=== PATIENT | female | born 1945 | race Caucasian/White ===

== ENCOUNTER 2017-08-01 16:32 | Outpatient (CLI) | payer MEDICARE, BC | END 2017-08-01 16:33 | disposition home or self-care (01) | LOC: BICMAMMO 16:32 | PROVIDERS: ATTEND Family Medicine | DX: Z12.31 Encounter for screening mammogram for malignant neoplasm of breast (principal); R92.1 Mammographic calcification found on diagnostic imaging of breast; Z80.3 Family history of malignant neoplasm of breast; Z85.038 Personal history of other malignant neoplasm of large intestine | CPT/HCPCS: 77063; 77067 ==

== ENCOUNTER 2018-04-21 02:51 | Observation (INO) | payer MEDICARE, BC ==
[2018-04-21] MEDS ORDERED: ADENOSINE 60 MG/20 ML VIAL ONE (10:39)
[2018-04-21 12:48] LABS: CKMB 1.5 ng/mL (0-6.6); Troponin I Less than 0.010 ng/mL (< 0.028)
[2018-04-21 13:09] VITALS: BMI 37.0
[2018-04-21 13:09] LABS: Bilirubin Negative (Negative); Blood, Urine Negative (Negative); Clarity CLEAR (Clear); Glucose, Urine (Dipstick) Negative (Negative); Leukocyte Negative (Negative); Nitrite Negative (Negative); Protein, Urine (Dipstick) Negative (Neg-Trace); RBC/HPF 0-3 HPF (0-3); Specific Gravity, Urine 1.004 (1.002-1.036); Urobilinogen 0.2 mg/dL (0.2-1.0); pH, Urine 6.5 (5.0-9.0)
[2018-04-21 13:10] LABS: Bacteria/HPF None Seen HPF (None Seen); Hyaline Casts/LPF NONE SEEN LPF (0-3 Hyaline); Squamous Epithelial 0-3 HPF (0-3); WBC/HPF 0-3 HPF (0-3)
--- NOTE | 2018-04-21 13:38 | RAD ---
CHEST ONE VIEW: HISTORY: Tachycardia. FINDINGS: The cardiac silhouette is magnified by projection. The pulmonary vasculature are unremarkable. The lungs are well inflated. No lobar consolidation or evidence of pneumothorax. child monitor leads overly the chest. IMPRESSION: No active cardiopulmonary abnormalities are demonstrated. POS: [facility]
[2018-04-21 15:31] VITALS: BP 137/65; TEMP 97.9
--- NOTE | 2018-04-21 16:00 | PDOC.EVN ---
Event Note - Event Note Event Note: I have examined and discussed the patient with GAMAL Ruby regarding evaluation for chest pain. Reviewed all pertinent history, physical exam findings and pertinent radiology and stress test results. Recommend Coreg 3.125mg BID. Will follow up Dr. Julian for Holter monitor. Patient and verbalized understanding of treatment plan and discharge instructions.
--- NOTE | 2018-04-21 16:07 | NM ---
RADIONUCLIDE STRESS ONLY MYOCARDIAL PERFUSION SCAN WITH CT ATTENUATION CORRECTION AND SPECT IMAGING: LEFT VENTRICULAR WALL MOTION EVALUATION AND EJECTION FRACTION: HISTORY: Chest pain. FINDINGS: Adenosine protocol. There is homogeneous uptake of radiotracer throughout the left ventricular myocardium. No evidence o f ischemia. QGS analysis of gated SPECT images shows no focal wall motion abnormalities. Ejection f raction is calculated at greater than 80%. IMPRESSION: Normal myocardial perfusion stress only examination. Normal left ventricular ejection fraction. POS: [facility]
[2018-04-21 16:47] LABS: Carbon Dioxide 22 mmol/L (23-31); Chloride 105 mmol/L (98-107); Potassium 3.9 mmol/L (3.5-5.1); Sodium 141 mmol/L (136-145)
[2018-04-21 16:50] LABS: Anion Gap 14 mmol/L (10-20); BUN (Urea Nitrogen) 16 mg/dL (9.8-20.1)
[2018-04-21 16:51] LABS: ALT (SGPT) 21 U/L (8-55); AST (SGOT) 27 U/L (5-34); Albumin 4.6 g/dL (3.4-4.8); Alkaline Phosphatase 110 U/L (40-150); Bilirubin, Total 0.6 mg/dL (0.2-1.2); Calc. Creatinine Clearance 89 mL/min (70-130); Calcium 9.7 mg/dL (7.8-10.44); Estimated GFR-MDRD 59; Globulin 2.8 g/dL (2.4-3.5); Glucose 107 mg/dL (83-110); Protein, Total 7.4 g/dL (5.8-8.1)
[2018-04-21 16:53] LABS: Thyroid Stimulating Hormone 5.8304 uIU/mL (0.35-4.94)
[2018-04-21 16:54] LABS: T4 9.4 ug/dL (4.87-11.72)
[2018-04-21 16:55] LABS: Free Thyroxine Index 2.35 (1.4-3.1)
[2018-04-21 16:56] LABS: CKMB 1.7 ng/mL (0-6.6); Troponin I Less than 0.010 ng/mL (< 0.028)
[2018-04-21 17:27] LABS: %Lymphocytes 26.7 % (21.0-51.0); %Neutrophils 60.7 % (42.0-75.0); Hemoglobin 13.9 g/dL (12.0-16.0); Mean Corpuscular HGB CONC 33.2 g/dL (32.0-36.0); Mean Corpuscular Hemoglobin 31.2 pg (27.0-31.0); Mean Corpuscular Volume 94.1 fL (78.0-98.0); Mean Platelet Volume 8.5 fL (7.4-10.4); Platelet Count 339 thou/uL (130-400); RBC Distribution Width 12.1 % (11.5-14.5); Red Blood Cell (RBC) Count 4.44 mill/uL (4.20-5.40)
[2018-04-21 17:28] LABS: #Basophils 0.1 thou/uL (0.0-0.2); #Eosinphils 0.2 thou/uL (0.0-0.7); #Lymphocytes 2.7 thou/uL (1.20-3.40); #Neutrophils 6.1 thou/uL (1.40-6.50); %Basophils 0.7 % (0.0-1.0); %Eosinophils 2.1 % (0.0-10.0); %Monocytes 9.8 % (0.0-10.0)
[2018-04-21] MEDS ORDERED: Atorvastatin Calcium 20 MG TAB PO SCH (21:00)
--- NOTE | 2018-04-21 22:39 | HP ---
SHORT STAY SUMMARY PRIMARY CARE PHYSICIAN: Nena Abad M.D. CHIEF COMPLAINT: Palpitations and a fast heart rate. HISTORY OF PRESENT ILLNESS: Ms. Erazo reports that she could not sleep early this morning, took 25 mg of Benadryl and sometime later started having heart palpitations and noted that she had a rapid heart rate and she reports feeling foggy and some tingling in extremities. This prompted her visit to the ER. She reports similar episodes several weeks ago which resolved spontaneously. She denies other complaints. EKG in the ER was significant for atrial flutter and RVR. Subsequent EKG was within normal sinus rhythm. She will be admitted for further management. PAST MEDICAL HISTORY: Includes hypothyroidism, hyperlipidemia, GERD, and migraines. CURRENT MEDICATIONS: She is on pantoprazole at 40 mg p.o. at bedtime, Synthroid 75 mcg p.o. q.a.m., Lipitor 20 mg p.o. at bedtime, Coenzyme Q 100 mg 2 tabs p.o. daily, multivitamin 1 tab p.o. daily, Krill oil 325 mg 3 tablets p.o. daily, aspirin 81 mg p.o. daily at nighttime, CIRILO-e oil 400 mg p.o. daily and then she also has Imitrex 100 mg p.o. p.r.n. q.12 hours for migraines. ALLERGIES: She is allergic to ERYTHROMYCIN. She reports GI issues with these. PAST SURGICAL HISTORY: Includes a right knee surgery, ovarian cyst was removed with a bilateral oophorectomy and skin cancer was removed from the right wrist and neck. FAMILY HISTORY: Pertinent for a father with TN x3. He of an TN at the age of 80. Mother from breast cancer at 75. Brother also has cardiac artery disease and has had one TN at the age of 55. SOCIAL HISTORY: She is , FULL CODE, nonsmoker, occasionally drinks alcohol. REVIEW OF SYSTEMS: GENERAL: She has some residual muscle spasms. Otherwise, she feels fine. She does reports that she feels her heart is no longer racing as she no longer has palpitations. EYES: No double vision, blurred vision, flashing lights. ENT: No ear pain or drainage. No nasal bleeding, no trouble swallowing. CARDIAC: See present illness. No orthopnea, no dyspnea currently. RESPIRATORY: No cough, wheezing or asthma. GASTROINTESTINAL: No nausea, vomiting, diarrhea or constipation. GENITOURINARY: No dysuria or hematuria. MUSCULOSKELETAL: She reports this intermittent muscle spasm all over her body. NEUROLOGIC: No strokes, seizures or focal weakness. She does report some intermittent tingling to her extremities, more so in her hands and her feet. SKIN: No bruises, bleeding or rash. HEME/LYMPH: No tender or swollen lymph nodes in axilla, inguinal, or cervical area. PHYSICAL EXAMINATION: GENERAL: She is an alert, pleasant, cooperative, in no acute distress. She has family members at the bedside. VITAL SIGNS: This morning, 97.8 temperature, pulse was 70, respirations were 20 , she was 96% on room air, and blood pressure was 124/58. HEENT: Pupils are equal, round, and reactive to light. Extraocular movements intact. Her sclerae was white. Tympanic membranes clear. Nose is clear. Dental hygiene is good. NECK: Supple, no JVD, no thyromegaly. CHEST: Clear to auscultation and percussion. HEART: Regular rate and rhythm. No murmurs or gallops noted. ABDOMEN: Soft. Bowel sounds are normal. EXTREMITIES: Reveal no cyanosis, clubbing or edema. PULSES: Carotid, radial, femoral, and pedal pulses are intact. SKIN: Warm and dry without bruises or rash. LYMPH: No swollen lymph nodes, no petechia. NEUROLOGICAL: Cranial nerves are intact. Deep tendon reflexes are symmetric. She moves all extremities. LABORATORY DATA AND IMAGING DATA: Three troponins were negative. Free T4 was 1.38, T3 uptake was 25, TSH was 5.83. Urine was negative. She had a stress test performed today which was normal with an EF of 80%. She had a chest x-ray done which showed no acute findings, no evidence of infiltrate. ASSESSMENT AND PLAN: 1. She was admitted for chest pain with atrial flutter and RVR, which resolved spontaneously. 2. Hypothyroidism. 3. Dyslipidemia. 4. Migraine headaches. Hospital Course: Serial troponins were done x3 which were negative. Magnesium and thyroid panel were also within normal limits. She was given aspirin. She had a chemical stress test done today and a Cardiology consult, stress test was negative. Dr. Julian discontinued the echo as her stress test was negative. He was comfortable sending the patient home. He will arrange a Holter monitor for her on Tuesday. We will discontinue her on all her home medications. We will substitute 325 mg of aspirin instead of the 81 mg and add some Coreg 3.125 mg p.o. b.i.d. Stable condition on discharge. She was discharged home and she is to follow up with Dr. Peacock within [address] Julian on Tuesday. ROBERTO CARLOS
[2018-04-22] MEDS ORDERED: Levothyroxine Sodium 75 MCG TAB PO SCH (06:00)
[2018-04-22] MEDS ORDERED: Aspirin 325 MG TAB PO SCH (09:00)
--- NOTE | 2018-04-24 07:15 | CON ---
DATE OF CONSULTATION: 04/21/2018 REASON FOR CONSULTATION: Tachycardia. HISTORY OF PRESENT ILLNESS: Ms. Erazo is a very pleasant 72-year-old woman who recently presented with tachycardia. She states it awoke her from sleep. She had jaw discomfort present. No nausea, vomiting or shortness of breath. She has had intermittent episodes of tachycardia with heart rate in the 130s to 150s. She was seen and evaluated in the emergency room where she was found to have sinu s tachycardia. I do not have tracings of telemetry monitoring showing it is going back down to ramos l. Her states she wants to monitor and heart rate is slowly decreased back down to the 90s. Recent stress study was negative for ischemia with normal LVEF. HOME MEDICATIONS: Include atorvastatin, Synthroid, Protonix, aspirin, and Imitrex. PAST MEDICAL HISTORY: Hypothyroidism, osteoarthritis, acid reflux, hyperlipidemia. PAST SURGICAL HISTORY: Knee surgery and nerve surgery. SOCIAL HISTORY: No current tobacco or alcohol use. REVIEW OF SYSTEMS: Ten point review of systems is reviewed as above, otherwise negative. PHYSICAL EXAMINATION: GENERAL: Patient is a pleasant female who is in no acute distress. The patient appears her stated a ge. VITAL SIGNS: Blood pressure 137/65, pulse 68, temperature 97.9. NEUROLOGIC: The patient is alert and oriented times 3 with no focal neurologic deficits. HEENT: Sclerae without icterus. Mouth has moist mucous membranes with normal pallor. NECK: No JVD. Carotid upstroke brisk. No bruits bilaterally. LUNGS: Clear to auscultation with unlabored respirations. BACK: No scoliosis or kyphosis. CARDIAC: Regular rate and rhythm with normal S1 and S2. No S3 or S4 noted. No significant rubs, murmurs, thrills, or gallops noted throughout the precordium. PMI is not displaced. There is no parasternal heave. ABDOMEN: Soft, nontender, nondistended. No peritoneal signs present. No hepatosplenomegaly. No abnormal striae. EXTREMITIES: 2+ femoral and 2+ dorsalis pedis pulses. No cyanosis, clubbing, or edema. SKIN: No gross abnormalities. PERTINENT LABORATORY DATA: CK and troponin negative. IMPRESSION: Tachycardia. RECOMMENDATIONS: Her recent EKG suggested sinus tachycardia. This does not appear to be consistent with SVT. At this point, recommend a 3-week event recorder to assess for any significant dysrhythmia s. Her stress study was negative with a normal LVEF. She will be okay from my standpoint to dischar ge home.
--- NOTE | 2018-04-29 12:30 | EKG ---
Test Reason : Blood Pressure : / mmHG Vent. Rate : 089 BPM Atrial Rate : 089 BPM P-R Int : 156 ms QRS Dur : 094 ms QT Int : 380 ms P-R-T Axes : 063 007 067 degrees QTc Int : 462 ms Normal sinus rhythm Nonspecific ST abnormality Abnormal ECG Confirmed by NANCY ARRIAGA D.O. ([id number]), order editor ADELE CONTRERAS ([id number]) on 04/29/2018 12:30:32 PM Referred By: Confirmed By:NANCY ARRIAGA D.O.
--- NOTE | 2018-04-29 12:30 | EKG ---
Test Reason : Blood Pressure : / mmHG Vent. Rate : 152 BPM Atrial Rate : 152 BPM P-R Int : 122 ms QRS Dur : 132 ms QT Int : 264 ms P-R-T Axes : 000 -15 044 degrees QTc Int : 419 ms Sinus tachycardia Right bundle branch block Cannot rule out Inferior infarct , age undetermined Abnormal ECG Confirmed by NANCY ARRIAGA D.O. ([id number]), editorial intern ADELE CONTRERAS ([id number]) on 04/29/2018 12:30:30 PM Referred By: Confirmed By:NANCY ARRIAGA D.O.
== END 2018-04-21 16:33 | disposition home or self-care (01) ==
LOC: ERS 02:51 → 2SW 06:57
PROVIDERS: ADMIT Family Medicine; ATTEND Family Medicine
DX: I48.92 Unspecified atrial flutter (principal); E03.9 Hypothyroidism, unspecified; E78.5 Hyperlipidemia, unspecified; G43.909 Migraine, unspecified, not intractable, without status migrainosus; Z79.899 Other long term (current) drug therapy; Z88.5 Allergy status to narcotic agent; R00.2 Palpitations
CPT/HCPCS: 71045; 78452; 81001; 82553 ×2; 83735; 84479; 84484 ×2; 93005; 93017; 94760; 99285; A9500; G0378; 80053; 84436; 84439; 84443; 85025; J0153

== ENCOUNTER 2018-05-05 15:25 | Outpatient (CLI) | payer MEDICARE, BC ==
--- NOTE | 2018-05-05 19:59 | MRI ---
MRI OF THE BRAIN WITHOUT CONTRAST: 05/05/18 Multiplanar and multisequential imaging of the brain obtained. INDICATIONS: Paresthesia. The ventricles have normal size and position. There is no evidence of mass or edema. There is no evid ence of restricted effusion. No evidence of acute infarct. No significant white matter abnormality. M inimal chronic ischemic white matter change. The intracranial internal carotid arteries, cerebral art eries, and basilar arteries show flow voids. Dural venous sinuses appear patent. The paranasal sinuses and mastoids appear clear. IMPRESSION: Unremarkable MRI of brain. POS: [facility]
== END 2018-05-05 15:26 | disposition home or self-care (01) ==
LOC: BICMRI 15:25
PROVIDERS: ATTEND Family Medicine
DX: R20.2 Paresthesia of skin (principal)
CPT/HCPCS: 70551

== ENCOUNTER 2018-12-12 14:07 | Outpatient (CLI) | payer MEDICARE, BC ==
--- NOTE | 2018-12-12 16:22 | MMO ---
Bilateral MAMMO Bilat Screen [facility]. CLINICAL HISTORY: Patient is 73 years old and is seen for screening. The patient has the following family history of breast cancer: mother, at age 70. The patient has a history of other cancer in 2006. VIEWS: The views performed were: bilateral craniocaudal with tomosynthesis and bilateral mediolateral oblique with tomosynthesis. FILMS COMPARED: The present examination has been compared to prior imaging studies performed at [facility] on 05/13/2014, 06/26/2015, 07/20/2016 and 08/01/2017. MAMMOGRAM FINDINGS: There are scattered fibroglandular densities. There are stable benign appearing calcifications seen in both breasts. There are no suspicious masses, suspicious calcifications, or new areas of architectural distortion. IMPRESSION: THERE IS NO MAMMOGRAPHIC EVIDENCE OF MALIGNANCY. A ROUTINE FOLLOW-UP MAMMOGRAM IN 1 YEAR IS RECOMMENDED. THE RESULTS OF THIS EXAM WERE SENT TO THE PATIENT. ACR BI-RADS Category 2 - Benign finding MAMMOGRAPHY NOTE: 1. A negative mammogram report should not delay a biopsy if a dominant of clinically suspicious mass is present. 2. Approximately 10% to 15% of breast cancers are not detected by mammography. 3. Adenosis and dense breasts may obscure an underlying neoplasm.
== END 2018-12-12 14:08 | disposition home or self-care (01) ==
LOC: BICMAMMO 14:07
PROVIDERS: ATTEND Family Medicine
DX: Z12.31 Encounter for screening mammogram for malignant neoplasm of breast (principal); Z80.3 Family history of malignant neoplasm of breast
CPT/HCPCS: 77063; 77067

== ENCOUNTER 2020-06-12 14:11 | Outpatient (CLI) | payer MEDICARE, BC ==
--- NOTE | 2020-06-12 15:01 | MMO ---
Bilateral MAMMO Bilat Screen [facility]. CLINICAL HISTORY: Patient is 75 years old and is seen for screening. The patient has the following family history of breast cancer: mother, at age 70. The patient has a history of other cancer in 2006. VIEWS: The views performed were: bilateral craniocaudal with tomosynthesis and bilateral mediolateral oblique with tomosynthesis. FILMS COMPARED: The present examination has been compared to prior imaging studies performed at [facility] on 06/26/2015, 07/20/2016, 08/01/2017 and 12/12/2018. This study has been interpreted with the assistance of computer-aided detection. MAMMOGRAM FINDINGS: There are scattered fibroglandular densities. There are no suspicious masses, suspicious calcifications, or new areas of architectural distortion. IMPRESSION: THERE IS NO MAMMOGRAPHIC EVIDENCE OF MALIGNANCY. A ROUTINE FOLLOW-UP MAMMOGRAM IN 1 YEAR IS RECOMMENDED. THE RESULTS OF THIS EXAM WERE SENT TO THE PATIENT. ACR BI-RADS Category 1 - Negative MAMMOGRAPHY NOTE: 1. A negative mammogram report should not delay a biopsy if a dominant of clinically suspicious mass is present. 2. Approximately 10% to 15% of breast cancers are not detected by mammography. 3. Adenosis and dense breasts may obscure an underlying neoplasm. Reported by: CHUCKY WASHINGTON MD Electonically Signed: [id number]
--- NOTE | 2020-06-12 15:08 | BD ---
BONE DENSITOMETRY: Date: 06/12/2020 HISTORY: Postmenopausal screening. FINDINGS: Lumbar Spine: BMD (g/cm2) L1 0.987 T-Score: 0.0 L2 1.047 T-Score: 0.2 L3 0.946 T-Score: -1.3 L4 0.946 T-Score: -1.0 Total 0.981 T-Score: -0.6 Left Femoral Neck: 0.667 T-Score: -1.6 Total Femur: 0.921 T-Score: -0.2 IMPRESSION: 1. Bone mineral density of the lumbar spine within normal range. 2. Bone mineral density of the femoral neck indicates osteopenia. 10 YEAR FRACTURE RISK: Major osteoporotic fracture: 10%. Hip fracture: 1.8% POS: [facility]
== END 2020-06-12 14:12 | disposition home or self-care (01) ==
LOC: BICMAMMO 14:11
PROVIDERS: ATTEND Family Medicine
DX: Z12.31 Encounter for screening mammogram for malignant neoplasm of breast (principal); M85.89 Other specified disorders of bone density and structure, multiple sites; Z85.89 Personal history of malignant neoplasm of other organs and systems; Z80.3 Family history of malignant neoplasm of breast
CPT/HCPCS: 77063; 77067; 77080

== ENCOUNTER 2020-10-08 15:02 | Outpatient (CLI) | payer MEDICARE, BC | END 2020-10-08 15:03 | disposition home or self-care (01) | LOC: BICRAD 15:02 | PROVIDERS: ATTEND Internal Medicine Pulmonary Disease | DX: R06.00 Dyspnea, unspecified (principal) | CPT/HCPCS: 71046 ==

== ENCOUNTER 2020-11-18 17:30 | Outpatient (CLI) | payer MEDICARE, BC | END 2020-11-18 17:31 | disposition home or self-care (01) | LOC: SLEEPLAB 17:30 | PROVIDERS: ATTEND Internal Medicine Pulmonary Disease | DX: G47.33 Obstructive sleep apnea (adult) (pediatric) (principal); R53.83 Other fatigue; K21.9 Gastro-esophageal reflux disease without esophagitis; R06.83 Snoring; F41.9 Anxiety disorder, unspecified; I11.9 Hypertensive heart disease without heart failure; G47.00 Insomnia, unspecified; G47.31 Primary central sleep apnea; E66.9 Obesity, unspecified; Z68.35 Body mass index [BMI] 35.0-35.9, adult | CPT/HCPCS: 95806 ==

== ENCOUNTER 2020-12-26 19:00 | Outpatient (CLI) | payer MEDICARE, BC | END 2020-12-26 19:01 | disposition home or self-care (01) | LOC: SLEEPLAB 19:00 | PROVIDERS: ATTEND Internal Medicine Pulmonary Disease | DX: G47.33 Obstructive sleep apnea (adult) (pediatric) (principal); R06.83 Snoring; G47.10 Hypersomnia, unspecified; G47.31 Primary central sleep apnea; E66.9 Obesity, unspecified; Z68.35 Body mass index [BMI] 35.0-35.9, adult | CPT/HCPCS: 95811 ==

== ENCOUNTER 2022-09-17 14:22 | Outpatient (CLI) | payer MEDICARE, BC | END 2022-09-17 14:23 | disposition home or self-care (01) | LOC: BICMAMMO 14:22 | PROVIDERS: ATTEND Family Medicine | DX: Z13.820 Encounter for screening for osteoporosis (principal); Z78.0 Asymptomatic menopausal state; M85.89 Other specified disorders of bone density and structure, multiple sites | CPT/HCPCS: 77080 ==